=== PATIENT | female | born 1975 | race Caucasian/White ===

== ENCOUNTER 2017-06-23 12:59 | Emergency (ER) | payer OTHER ==
[~2017-06-23] VITALS: Ht 172.7 cm; Wt 105.2 kg
--- NOTE | ~2017-06-23 | EKG ---
[address] [address] ELECTROCARDIOGRAM REPORT Name: BRENDA SANTIAGO Room #: DEP Peace#: [id number] Admission: 06/23/17 Attend Phys: Discharge: 06/23/17 Date of : 71 Report #: [id number] THIS REPORT FOR: //name// [facility] ED Test Date: 2017-06-23 Test Time: 13:08:21 Pat Name: BRENDA SANTIAGO Department: Room: Gender: F University Dean: [facility] : 1975 Requested By: Louise Hubbard Order Number: [id number] MD: Puma Rodriguez Measurements Intervals [place] Rate: 68 P: 65 TN: 169 QRS: 53 QRSD: 100 T: 60 QT: 401 QTc: 427 Interpretive Statements Sinus rhythm No previous ECG available for comparison Electronically Signed On 06-23-2017 15:46:35 [employer] by Puma Rodriguez [email or web address] <ELECTRONICALLY SIGNED> By: Puma Rodriguez MD 06/23/17 1546 [id number] Puma Rodriguez MD /EPI
[2017-06-23 13:44] LABS: URINE BILIRUBIN NEGATIVE (Negative); URINE BLOOD 1+ (Negative); URINE CLARITY CLEAR; URINE COLOR YELLOW; URINE GLUCOSE-RANDOM* NEGATIVE (Negative); URINE KETONES NEGATIVE (Negative); URINE LEUKOCYTES NEGATIVE (Negative); URINE NITRITE NEGATIVE (Negative); URINE PROTEIN (DIPSTICK) NEGATIVE (Negative); URINE SPECIFIC GRAVITY <= 1.005 (1.005-1.035); URINE UROBILINOGEN 0.2 E.U./dl (0.2-1.0)
[2017-06-23 13:51] LABS: BACTERIA None Seen /HPF (None Seen); CASTS None Seen /LPF (None Seen); CRYSTALS None Seen /LPF (None Seen); SQUAMOUS 0-3 Few /LPF (0-3); URINE RBC 3-10 Few /HPF (0-2); URINE WBC None Seen /HPF (0-5)
[2017-06-23 14:05] LABS: ABSOLUTE NEUTROPHILS 2.7 thou/uL (1.4-8.2); BASOPHILS 1.1 % (0.0-2.0); EOSINOPHILS 1.6 % (0.0-3.0); HEMATOCRIT 39.2 % (37.0-47.0); HEMOGLOBIN 13.2 gm/dL (12.0-15.0); LYMPHOCYTES 52.2 % (24.0-44.0); MCH 31.2 pg (26.0-34.0); MCHC 33.6 g/dL (28.0-37.0); MCV 92.7 fL (80.0-100.0); MONOCYTES 5.2 % (1.0-8.0); PLATELET COUNT 217 thou/uL (150-400); POLYS 39.9 % (36.0-66.0); RBC 4.23 mil/uL (4.20-5.00); RDW 12.6 % (10.5-14.5); WBC 6.7 thou/uL (4.0-11.0)
[2017-06-23 14:24] LABS: ANION GAP 10 mmol/L (7-16); BUN 20 mg/dL (7-18); CALCIUM 8.8 mg/dL (8.5-10.1); CHLORIDE 105 mmol/L (98-107); CO2 25 mmol/L (21-32); CREATININE 0.7 mg/dL (0.6-1.0); GLUCOSE 95 mg/dL (74-106); SODIUM 140 mmol/L (136-145); TROPONIN-I < 0.04 ng/mL (<0.06)
[2017-06-23 15:10] LABS: ESR (SEDRATE) 10 mm/hr (0-20)
[2017-06-23] MEDS ORDERED: PHENERGAN 25 MG25 M1 PO (15:13)
== END 2017-06-23 15:34 | disposition home or self-care (01) ==
LOC: ER 12:59
PROVIDERS: Emergency Medicine
DX: G43.909 Migraine, unspecified, not intractable, without status migrainosus (principal); F41.9 Anxiety disorder, unspecified; F32.9 Major depressive disorder, single episode, unspecified